=== PATIENT | male | born 1980 | race Caucasian/White ===

== ENCOUNTER 2020-05-01 04:44 | Emergency (ER) | payer SELFPAY ==
[~2020-05-01] VITALS: Ht 180.3 cm; Wt 107.5 kg
[2020-05-01 05:28] LABS: APPEARANCE, URINE CLEAR (CLEAR); BACTERIA, URINE AUTO NEGATIVE (NEGATIVE); BILIRUBIN, URINE AUTO NEGATIVE (NEGATIVE); BLOOD, URINE BLOOD 2+ (NEGATIVE); COLOR, URINE YELLOW (YELLOW); GLUCOSE, URINE (UA) AUTO NEGATIVE (NEGATIVE); KETONE, URINE AUTO NEGATIVE (NEGATIVE); LEUKOCYTE ESTERASE, URINE AUTO NEGATIVE (NEGATIVE); MUCUS, URINE SMALL (NEGATIVE); NITRITE, URINE AUTO NEGATIVE (NEGATIVE); PROTEIN, URINE AUTO 1+ mg/dL (NEGATIVE); RBC, URINE AUTO 8 /HPF (0-3); SPECIFIC GRAVITY URINE AUTO 1.024 (1.002-1.035); SQUAMOUS EPITHELIAL CELL UR AU 0 /HPF (0-6); UROBILINOGEN, URINE AUTO 0.2 mg/dL (0.0-2.0); WBC, URINE AUTO 1 /HPF (0-3)
[2020-05-01] MEDS ORDERED: NS 1,000 ML IV ONE (05:45)
[2020-05-01] MEDS ORDERED: ONDANSETRON 4MG/2ML VIAL IV ONE (05:45)
[2020-05-01] MEDS ORDERED: KETOROLAC 30 MG/ML 1ML VIAL IV ONE (05:45)
[2020-05-01 06:09] LABS: BASO # 0.1 10^3/uL (0.0-0.2); BASO % 0.7 % (0.0-1.0); EOS # 0.1 10^3/uL (0.0-0.5); EOS % 1.2 % (0.0-3.0); HEMATOCRIT 47.4 % (42.0-52.0); HEMOGLOBIN 16.3 g/dl (13.5-17.5); LYMPH # 1.7 10^3/uL (1.5-5.0); LYMPH % 13.9 % (24.0-44.0); MEAN CORPUSCULAR HGB CONC 34.4 g/dl (32.0-36.5); MEAN CORPUSCULAR VOLUME 90.3 fl (80.0-96.0); MONO # 0.8 10^3/uL (0.0-0.8); MONO % 6.2 % (0.0-5.0); NEUTROPHILS # 9.4 10^3/uL (1.5-8.5); NEUTROPHILS % 77.8 % (36.0-66.0); PLATELET COUNT, AUTOMATED 300 10^3/uL (150-450); RED BLOOD COUNT 5.25 10^6/uL (4.30-6.10); WHITE BLOOD COUNT 12.1 10^3/uL (4.0-10.0)
--- NOTE | 2020-05-01 06:26 | REPVR ---
PROCEDURE INFORMATION: Exam: CT Abdomen And Pelvis Without Contrast Exam date and time: 05/01/2020 5:43 AM Age: 40 years old Clinical indication: Abdominal pain; Flank; Right; Additional info: Right flank pain, hematuria TECHNIQUE: Imaging protocol: Computed tomography of the abdomen and pelvis without contrast. Radiation optimization: All CT scans at this facility use at least one of these dose optimization techniques: automated exposure control; mA and/or kV adjustment per patient size (includes targeted exams where dose is matched to clinical indication); or iterative reconstruction. COMPARISON: No relevant prior studies available. FINDINGS: Detailed evaluation of the abdominal and pelvic viscera is somewhat limited in the absence of intravenous contrast. Pleural space: No acute airspace or pleural disease. Liver: No focal hepatic mass. Gallbladder and bile ducts: No cholelithiasis or biliary ductal dilatation. Pancreas: No pancreatic mass or ductal dilatation. Spleen: Lobulated morphology of the normal size spleen. Adrenal glands: unremarkable adrenals. Kidneys and ureters: 1 mm nonobstructing renal calculi . Stomach and bowel: Mild wall thickening in the nondistended stomach and colon. Diverticula, without pericolonic inflammation. Appendix: No acute appendicitis. Intraperitoneal space: no free fluid. Vasculature: normal caliber of the abdominal aorta. pelvic vascular calcifications. Normal caliber of the abdominal aorta. Lymph nodes: Subcentimeter lymph nodes. Urinary bladder: Nondistended bladder. Reproductive: Prostate calcification. Bones/joints: Degenerative change and disc bulging. IMPRESSION: 1. 1 mm nonobstructing renal calculi . 2. Additional findings as described above. Electronically signed by: Herb Alexandra On 05/01/2020 06:25:51 AM
[2020-05-01 06:30] LABS: ALBUMIN 4.7 GM/DL (3.2-5.2); ALT/SGPT 40 U/L (12-78); BILIRUBIN,DIRECT 0.2 MG/DL (0.0-0.2); BLOOD UREA NITROGEN 18 MG/DL (7-18); CALCIUM LEVEL 9.4 MG/DL (8.5-10.1); CARBON DIOXIDE LEVEL 27 MEQ/L (21-32); CHLORIDE LEVEL 104 MEQ/L (98-107); CREATININE FOR GFR 1.04 MG/DL (0.70-1.30); GLOMERULAR FILTRATION RATE > 60.0 (>60); GLUCOSE, FASTING 123 MG/DL (70-100); LIPASE 63 U/L (73-393); POTASSIUM SERUM 4.1 MEQ/L (3.5-5.1); SODIUM LEVEL 142 MEQ/L (136-145); TOTAL PROTEIN 7.8 GM/DL (6.4-8.2)
[2020-05-01] MEDS ORDERED: MORPHINE 4 MG/ML 1ML VIAL/SYRINGE (J2270) IV PRN (06:45)
[2020-05-01] MEDS ORDERED: TAMSULOSIN 0.4 MG CAP PO ONE (06:45)
[2020-05-01 07:30] VITALS: BP 131/77
[2020-05-01] MEDS ORDERED: DICY10CA13 PO (07:44)
[2020-05-01] MEDS ORDERED: MIRA3350 PO (07:44)
== END 2020-05-01 07:58 | disposition home or self-care (01) ==
LOC: M ED 04:44
DX: K57.30 Diverticulosis of large intestine without perforation or abscess without bleeding (principal); K59.00 Constipation, unspecified; N20.0 Calculus of kidney; M54.9 Dorsalgia, unspecified; G89.29 Other chronic pain
CPT/HCPCS: 74176; 80048; 80076; 81001; 83690; 85025; 96374; 96375; 99284; J1885; J2270; J2405

== ENCOUNTER 2024-10-31 07:30 | Day surgery (SDC) | payer OTHER ==
[~2024-10-31] VITALS: Ht 152.4 cm; Wt 103.1 kg
[~2024-10-31 07:30] MED LIST: DICY-61 PO; LIDOCAINE 2% 100 MG/5 ML SDV (FOR ANES.) As Ordered ONE; MIDAZOLAM INJ 2 MG/2 ML VIAL As Ordered ONE; MIRA3350 PO
[2024-10-31] MEDS ORDERED: LR 1,000 ML IV SCH (08:05)
[2024-10-31] MEDS: MIDAZOLAM INJ 2 MG/2 ML VIAL IV PRN (08:37)
[2024-10-31] MEDS: ROPIvacaine 0.5% 30ML VIAL PN ONE (08:46)
[2024-10-31] MEDS: dexAMETHasone 10 MG/1 ML VIAL PRES.FREE PN ONE (08:46)
[2024-10-31] MEDS: LIDOCAINE 1% SDV 5 ML VIAL PN ONE (08:46)
[2024-10-31] MEDS: ceFAZolin SOD 2 GM IV ONCE IV ONE (09:19)
[2024-10-31] MEDS ORDERED: ACETAMINOPHEN 1000MG/100ML IV BAG As Ordered ONE (09:30)
[2024-10-31] MEDS ORDERED: ONDANSETRON 4MG 2ML VIAL As Ordered ONE (10:01)
[2024-10-31] MEDS ORDERED: KETOROLAC 30 MG/ML 1 ML VIAL As Ordered ONE (10:01)
[2024-10-31] MEDS ORDERED: dexAMETHasone 4 MG/ML 1 ML VIAL As Ordered ONE (10:02)
[2024-10-31] MEDS: LIDOCAINE W/EPINEPHrine 1% 20 ML VIAL As Ordered ONE (10:56)
[2024-10-31] MEDS ORDERED: HYDROMORPHONE HCL 0.5 MG/0.5 ML SYRINGE IV PRN (11:10)
[2024-10-31] MEDS ORDERED: traMADol 50 MG TAB PO ONE (11:10)
[2024-10-31] MEDS ORDERED: PERCOCET PO (11:27)
[2024-10-31] MEDS: ONDANSETRON 4MG 2ML VIAL IV PRN (11:30)
[2024-10-31 12:28] VITALS: BP 126/78; TEMP 97; O2SAT 98
== END 2024-10-31 12:40 | disposition home or self-care (01) ==
LOC: M SDC 07:30
PROVIDERS: ATTEND Orthopaedic Surgery Hand Surgery
DX: S46.212A Strain of muscle, fascia and tendon of other parts of biceps, left arm, initial encounter (principal); X50.9XXA Other and unspecified overexertion or strenuous movements or postures, initial encounter; Y93.9 Activity, unspecified; Y92.9 Unspecified place or not applicable
CPT/HCPCS: 24342; 76000; C1713; J0131; J0690; J1100; J1885; J2250; J2405; J2795; J3010